=== PATIENT | male | born 1955 | race Caucasian/White ===

== ENCOUNTER 2021-05-04 13:28 | Inpatient (IN) | payer MEDICARE, BC ==
[2021-05-04 15:02] LABS: ALT (SGPT) 22 U/L (8-55); AST (SGOT) 19 U/L (5-34); Albumin 4.2 g/dL (3.4-4.8); Alkaline Phosphatase 55 U/L (40-110); Anion Gap 20 mmol/L (10-20); BUN (Urea Nitrogen) 40 mg/dL (8.4-25.7); Bilirubin, Total 0.4 mg/dL (0.2-1.2); CK (CPK) 54 U/L (30-200); Calc. Creatinine Clearance 0 mL/min (70-130); Calcium 9.3 mg/dL (7.8-10.44); Carbon Dioxide 21 mmol/L (23-31); Chloride 99 mmol/L (98-107); Globulin 2.3 g/dL (2.4-3.5); Glucose 262 mg/dL (80-115); Potassium 5.1 mmol/L (3.5-5.1); Protein, Total 6.5 g/dL (5.8-8.1); Sodium 135 mmol/L (136-145)
[2021-05-04] MEDS ORDERED: Cefepime 2 GM VIAL ONE (15:15)
[2021-05-04] MEDS ORDERED: Vancomycin 1.5 GRAM/300 ML BAG 1.5 GM in Premix Bag 1 BAG IVPB SCH (15:15)
[2021-05-04 15:19] LABS: #Eosinphils 0.1 10x3/uL (0.0-0.5); #Monocytes 0.6 10x3/uL (0.0-1.1); #Neutrophils 7.4 10x3/uL (1.5-8.4); %Basophils 0.4 % (0.0-2.0); %Eosinophils 0.9 % (0.0-6.0); %Monocytes 5.7 % (0.0-10.0); %Neutrophils 77.3 % (40.0-75.0); Hemoglobin 12.1 g/dL (13.5-17.5); Mean Corpuscular HGB CONC 33.2 g/dL (32.0-36.0); Mean Corpuscular Hemoglobin 31.8 pg (27.0-33.0); Mean Corpuscular Volume 95.8 fl (81.2-95.1); Mean Platelet Volume 9.8 fl (7.4-10.4); Platelet Count 179 10x3/uL (150-450); RBC Distribution Width 14.2 % (11.5-14.5); White Blood Cell (WBC) Count 9.6 10x3/uL (3.5-10.5)
[2021-05-04] MEDS ORDERED: Dextrose 50% Abboject 50 ML SYRINGE SLOW IVP PRN (17:16)
[2021-05-04] MEDS ORDERED: Dextrose 5% in Water 1,000 ML IV PRN (17:16)
[2021-05-04] MEDS ORDERED: Ondansetron ODT 4 MG TAB PO PRN (17:16)
[2021-05-04 17:29] LABS: Lactic Acid 3.4 mmol/L (0.5-2.2)
[2021-05-04] MEDS ORDERED: Sodium Chloride 0.9% 1,000 ML IV SCH (17:30)
[2021-05-04] MEDS ORDERED: Cyclobenzaprine 10 MG TAB PO SCH (19:15)
[2021-05-04 21:32] LABS: Lactic Acid 3.1 mmol/L (0.5-2.2)
[2021-05-04] MEDS: Acetaminophen 325 MG TAB PO PRN (21:42)
[2021-05-04] MEDS: Heparin 5,000 UNITS/ML VIAL SC SCH (21:44)
[2021-05-05 03:16] VITALS: BMI 24.3
[2021-05-05] MEDS ORDERED: FLU VACC QS2021-22(65YR UP)/PF 240 MCG/0.7 ML SYRINGE IM ONE (04:00)
[2021-05-05 05:31] LABS: #Basophils 0.1 10x3/uL (0.0-0.2); #Eosinphils 0.1 10x3/uL (0.0-0.5); #Monocytes 0.7 10x3/uL (0.0-1.1); #Neutrophils 5.3 10x3/uL (1.5-8.4); %Basophils 0.7 % (0.0-2.0); %Eosinophils 1.6 % (0.0-6.0); %Lymphocytes 28.7 % (18.0-47.0); %Monocytes 8.1 % (0.0-10.0); %Neutrophils 60.2 % (40.0-75.0); Hemoglobin 11.6 g/dL (13.5-17.5); Mean Corpuscular HGB CONC 33.5 g/dL (32.0-36.0); Mean Corpuscular Hemoglobin 32.1 pg (27.0-33.0); Mean Corpuscular Volume 95.8 fl (81.2-95.1); Mean Platelet Volume 10.2 fl (7.4-10.4); Platelet Count 198 10x3/uL (150-450); RBC Distribution Width 14.1 % (11.5-14.5); Red Blood Cell (RBC) Count 3.61 10x6/uL (4.32-5.72); White Blood Cell (WBC) Count 8.9 10x3/uL (3.5-10.5)
[2021-05-05] MEDS: Acetaminophen 325 MG TAB PO PRN ×3 (06:05→19:57)
[2021-05-05 06:06] LABS: Anion Gap 17 mmol/L (10-20); BUN (Urea Nitrogen) 39 mg/dL (8.4-25.7); Calc. Creatinine Clearance 37 mL/min (70-130); Calcium 9.1 mg/dL (7.8-10.44); Carbon Dioxide 18 mmol/L (23-31); Chloride 108 mmol/L (98-107); Glucose 143 mg/dL (80-115); Potassium 3.8 mmol/L (3.5-5.1); Sodium 139 mmol/L (136-145)
[2021-05-05] MEDS ORDERED: ASCORBIC ACID PO SCH (09:00)
[2021-05-05] MEDS: Icosapent Ethyl 1 GM CAPSULE PO SCH ×2 (09:00→22:06)
[2021-05-05] MEDS ORDERED: [UNRECOGNIZED DRUG - OTHER] PO SCH (09:00)
[2021-05-05] MEDS ORDERED: Aspirin 81 mg Enteric Coated Tablet PO SCH (09:00)
[2021-05-05] MEDS ORDERED: FERROUS FUMARATE PO SCH (09:00)
[2021-05-05] MEDS: Metoprolol Tartrate 50 MG TAB PO SCH ×2 (09:20→21:51)
[2021-05-05] MEDS: Furosemide 40 MG TAB PO SCH (09:21)
[2021-05-05] MEDS: LACTINEX 1 TAB PO SCH (09:22)
[2021-05-05] MEDS: Heparin 5,000 UNITS/ML VIAL SC SCH ×2 (09:22→21:50)
[2021-05-05] MEDS: Cyclobenzaprine 10 MG TAB PO SCH ×2 (12:49→20:00)
[2021-05-05] MEDS: Atorvastatin Calcium 20 MG TAB PO SCH (12:50)
[2021-05-05] MEDS: Allopurinol 300 MG TAB PO SCH (12:50)
[2021-05-05] MEDS: Cholecalciferol 1,000 UNITS (25 MCG) TAB PO SCH (12:50)
[2021-05-05] MEDS: hydrALAZINE 25 MG TAB PO SCH ×2 (14:32→21:51)
[2021-05-05] MEDS: HumaLOG 300 UNITS/3 ML VIAL SC PRN (14:45)
[2021-05-05] MEDS: Cefepime 1 GM in Sodium Chloride 0.9% 100 ML IVPB SCH (15:28)
[2021-05-05 15:31] LABS: Vancomycin, Random 8.4 ug/mL (See Comment)
[2021-05-05] MEDS ORDERED: Vancomycin 1 GM in Premix Bag 1 BAG IVPB SCH (16:00)
[2021-05-05 17:59] LABS: Lactic Acid 1.6 mmol/L (0.5-2.2)
[2021-05-05] MEDS: Vancomycin HCl 1 GM in Sodium Chloride 0.9% 250 ML 250 ML IVPB SCH (21:50)
[2021-05-06] MEDS: Acetaminophen 325 MG TAB PO PRN ×4 (01:45→18:45)
[2021-05-06] MEDS: Cyclobenzaprine 10 MG TAB PO SCH ×5 (01:45→23:26)
[2021-05-06] MEDS: Levothyroxine Sodium 25 MCG TAB PO SCH (06:11)
[2021-05-06 06:35] LABS: #Eosinphils 0.1 10x3/uL (0.0-0.5); #Monocytes 0.7 10x3/uL (0.0-1.1); #Neutrophils 4.9 10x3/uL (1.5-8.4); %Basophils 0.5 % (0.0-2.0); %Eosinophils 1.7 % (0.0-6.0); %Lymphocytes 27.7 % (18.0-47.0); %Monocytes 8.7 % (0.0-10.0); %Neutrophils 60.8 % (40.0-75.0); Hemoglobin 11.7 g/dL (13.5-17.5); Mean Corpuscular HGB CONC 33.6 g/dL (32.0-36.0); Mean Corpuscular Hemoglobin 32.2 pg (27.0-33.0); Mean Corpuscular Volume 95.9 fl (81.2-95.1); Platelet Count 173 10x3/uL (150-450); Red Blood Cell (RBC) Count 3.63 10x6/uL (4.32-5.72)
[2021-05-06 06:44] LABS: Anion Gap 16 mmol/L (10-20); BUN (Urea Nitrogen) 34 mg/dL (8.4-25.7); Calc. Creatinine Clearance 39 mL/min (70-130); Calcium 8.9 mg/dL (7.8-10.44); Carbon Dioxide 21 mmol/L (23-31); Chloride 105 mmol/L (98-107); Glucose 182 mg/dL (80-115); Sodium 138 mmol/L (136-145)
[2021-05-06 08:16] LABS: Anion Gap 16 mmol/L (10-20); BUN (Urea Nitrogen) 34 mg/dL (8.4-25.7); Calc. Creatinine Clearance 39 mL/min (70-130); Calcium 8.9 mg/dL (7.8-10.44); Carbon Dioxide 21 mmol/L (23-31); Chloride 105 mmol/L (98-107); Glucose 214 mg/dL (80-115); Potassium 3.7 mmol/L (3.5-5.1); Sodium 138 mmol/L (136-145)
[2021-05-06] MEDS: Metoprolol Tartrate 50 MG TAB PO SCH ×2 (08:56→21:09)
[2021-05-06] MEDS: Icosapent Ethyl 1 GM CAPSULE PO SCH ×2 (08:56→21:09)
[2021-05-06] MEDS: Furosemide 40 MG TAB PO SCH (08:57)
[2021-05-06] MEDS: hydrALAZINE 25 MG TAB PO SCH ×2 (08:57→21:09)
[2021-05-06] MEDS: LACTINEX 1 TAB PO SCH (08:57)
[2021-05-06] MEDS: Heparin 5,000 UNITS/ML VIAL SC SCH ×2 (08:58→21:18)
[2021-05-06] MEDS: Cholecalciferol 1,000 UNITS (25 MCG) TAB PO SCH (12:18)
[2021-05-06] MEDS: Allopurinol 300 MG TAB PO SCH (12:18)
[2021-05-06] MEDS: Atorvastatin Calcium 20 MG TAB PO SCH (12:19)
[2021-05-06] MEDS: HumaLOG 300 UNITS/3 ML VIAL SC PRN ×3 (13:17→21:31)
[2021-05-06 14:45] LABS: SARS-CoV-2 PCR by NAA Not Detected (NotDetected)
[2021-05-06] MEDS: Cefepime 1 GM in Sodium Chloride 0.9% 100 ML IVPB SCH (15:23)
[2021-05-06] MEDS: Vancomycin HCl 1 GM in Sodium Chloride 0.9% 250 ML 250 ML IVPB SCH (21:08)
[2021-05-06] MEDS: Docusate 100 MG CAP PO SCH (21:09)
[2021-05-07] MEDS: Metoprolol Tartrate 50 MG TAB PO SCH ×2 (05:40→20:15)
[2021-05-07] MEDS: Cyclobenzaprine 10 MG TAB PO SCH ×4 (05:41→22:05)
[2021-05-07] MEDS: LACTINEX 1 TAB PO SCH (06:39)
[2021-05-07] MEDS: Levothyroxine Sodium 25 MCG TAB PO SCH (06:39)
[2021-05-07] MEDS: Icosapent Ethyl 1 GM CAPSULE PO SCH ×2 (06:39→20:15)
[2021-05-07] MEDS: hydrALAZINE 25 MG TAB PO SCH ×2 (06:40→20:15)
[2021-05-07] MEDS: Docusate 100 MG CAP PO SCH ×2 (06:41→20:15)
[2021-05-07] MEDS: Acetaminophen 325 MG TAB PO PRN ×2 (06:54→20:23)
[2021-05-07] MEDS: Heparin 5,000 UNITS/ML VIAL SC SCH (06:57)
[2021-05-07 07:40] LABS: #Basophils 0.1 10x3/uL (0.0-0.2); #Eosinphils 0.2 10x3/uL (0.0-0.5); #Monocytes 0.8 10x3/uL (0.0-1.1); #Neutrophils 6.2 10x3/uL (1.5-8.4); %Basophils 0.8 % (0.0-2.0); %Eosinophils 1.9 % (0.0-6.0); %Lymphocytes 21.4 % (18.0-47.0); %Monocytes 8.8 % (0.0-10.0); %Neutrophils 66.3 % (40.0-75.0); Hemoglobin 12.3 g/dL (13.5-17.5); Mean Corpuscular HGB CONC 33.6 g/dL (32.0-36.0); Mean Corpuscular Hemoglobin 31.5 pg (27.0-33.0); Mean Corpuscular Volume 93.8 fl (81.2-95.1); Mean Platelet Volume 10.2 fl (7.4-10.4); Platelet Count 191 10x3/uL (150-450); RBC Distribution Width 13.9 % (11.5-14.5); White Blood Cell (WBC) Count 9.3 10x3/uL (3.5-10.5)
[2021-05-07 07:45] LABS: Anion Gap 17 mmol/L (10-20); BUN (Urea Nitrogen) 34 mg/dL (8.4-25.7); Calc. Creatinine Clearance 47 mL/min (70-130); Calcium 9.5 mg/dL (7.8-10.44); Carbon Dioxide 23 mmol/L (23-31); Chloride 103 mmol/L (98-107); Glucose 268 mg/dL (80-115); Potassium 3.9 mmol/L (3.5-5.1); Sodium 139 mmol/L (136-145)
[2021-05-07 07:47] LABS: Anion Gap 15 mmol/L (10-20); BUN (Urea Nitrogen) 34 mg/dL (8.4-25.7); Calc. Creatinine Clearance 48 mL/min (70-130); Calcium 9.3 mg/dL (7.8-10.44); Carbon Dioxide 23 mmol/L (23-31); Chloride 103 mmol/L (98-107); Glucose 268 mg/dL (80-115); Potassium 3.8 mmol/L (3.5-5.1); Sodium 137 mmol/L (136-145)
[2021-05-07] MEDS: Cholecalciferol 1,000 UNITS (25 MCG) TAB PO SCH (11:38)
[2021-05-07] MEDS: Atorvastatin Calcium 20 MG TAB PO SCH (11:38)
[2021-05-07] MEDS: Allopurinol 300 MG TAB PO SCH (11:38)
[2021-05-07] MEDS ORDERED: Nitroglycerin 50 MG/250 ML BOT 0 ML ONE (12:33)
[2021-05-07] MEDS ORDERED: Bivalirudin 250 MG VIAL ONE (12:34)
[2021-05-07] MEDS ORDERED: Verapamil 5 MG/2 ML VIAL ONE (12:34)
[2021-05-07] MEDS ORDERED: Adenosine 6 MG/2 ML VIAL ONE (12:34)
[2021-05-07] MEDS ORDERED: Lidocaine 1% PF 5 ML VIAL ONE (12:36)
[2021-05-07] MEDS ORDERED: Heparin 10,000 UNITS/ 10 ML VIAL ONE (12:36)
[2021-05-07] MEDS ORDERED: Fentanyl 100 MCG/2 ML VIAL ONE (12:37)
[2021-05-07] MEDS ORDERED: Sodium Chloride 0.9% 1,000 ML ONE (12:37)
[2021-05-07] MEDS ORDERED: Midazolam HCl 2 mg/2 ml Vial ONE ×2 (12:37→13:59)
[2021-05-07] MEDS ORDERED: TICAGRELOR 90 MG TABLET ONE (14:08)
[2021-05-07] MEDS ORDERED: Aspirin 325 MG TAB ONE (14:08)
[2021-05-07] MEDS: Cefepime 2 GM in Sodium Chloride 0.9% 100 ML IVPB SCH (15:49)
[2021-05-07] MEDS: Sodium Chloride 0.9% 1,000 ML IV SCH (15:50)
[2021-05-07] MEDS: Vancomycin HCl 1 GM in Sodium Chloride 0.9% 250 ML 250 ML IVPB SCH (19:41)
[2021-05-07 20:18] LABS: Vancomycin, Trough 13.8 ug/mL
[2021-05-07] MEDS: HumaLOG 300 UNITS/3 ML VIAL SC PRN (21:13)
[2021-05-08] MEDS: Sodium Chloride 0.9% 1,000 ML IV SCH ×3 (01:33→23:53)
[2021-05-08 03:47] LABS: #Basophils 0.1 10x3/uL (0.0-0.2); #Eosinphils 0.2 10x3/uL (0.0-0.5); #Monocytes 0.8 10x3/uL (0.0-1.1); #Neutrophils 5.6 10x3/uL (1.5-8.4); %Basophils 0.6 % (0.0-2.0); %Monocytes 9.2 % (0.0-10.0); %Neutrophils 68.8 % (40.0-75.0); Hemoglobin 11.1 g/dL (13.5-17.5); Mean Corpuscular HGB CONC 34.2 g/dL (32.0-36.0); Mean Corpuscular Hemoglobin 32.1 pg (27.0-33.0); Mean Corpuscular Volume 93.9 fl (81.2-95.1); Mean Platelet Volume 10.3 fl (7.4-10.4); Platelet Count 161 10x3/uL (150-450); RBC Distribution Width 14.1 % (11.5-14.5); Red Blood Cell (RBC) Count 3.46 10x6/uL (4.32-5.72); White Blood Cell (WBC) Count 8.2 10x3/uL (3.5-10.5)
[2021-05-08 04:16] LABS: ALT (SGPT) 18 U/L (8-55); AST (SGOT) 16 U/L (5-34); Albumin 3.8 g/dL (3.4-4.8); Alkaline Phosphatase 60 U/L (40-110); Anion Gap 13 mmol/L (10-20); BUN (Urea Nitrogen) 29 mg/dL (8.4-25.7); Bilirubin, Total 0.3 mg/dL (0.2-1.2); Calc. Creatinine Clearance 49 mL/min (70-130); Calcium 9.1 mg/dL (7.8-10.44); Carbon Dioxide 22 mmol/L (23-31); Chloride 106 mmol/L (98-107); Globulin 1.9 g/dL (2.4-3.5); Glucose 292 mg/dL (80-115); Magnesium 1.9 mg/dL (1.6-2.6); Potassium 4.2 mmol/L (3.5-5.1); Protein, Total 5.7 g/dL (5.8-8.1); Sodium 137 mmol/L (136-145)
[2021-05-08] MEDS: Cyclobenzaprine 10 MG TAB PO SCH ×4 (06:18→23:54)
[2021-05-08] MEDS: Acetaminophen 325 MG TAB PO PRN ×2 (06:18→21:20)
[2021-05-08] MEDS: HumaLOG 300 UNITS/3 ML VIAL SC PRN ×3 (06:23→21:22)
[2021-05-08] MEDS: LACTINEX 1 TAB PO SCH (08:31)
[2021-05-08] MEDS: Aspirin Chewable 81 MG TAB PO SCH (08:32)
[2021-05-08] MEDS: Icosapent Ethyl 1 GM CAPSULE PO SCH ×2 (08:32→21:21)
[2021-05-08] MEDS: Clopidogrel Bisulfate 75 MG TAB PO SCH (08:32)
[2021-05-08] MEDS: Levothyroxine Sodium 25 MCG TAB PO SCH (08:33)
[2021-05-08] MEDS: Docusate 100 MG CAP PO SCH ×2 (08:33→21:22)
[2021-05-08] MEDS: hydrALAZINE 25 MG TAB PO SCH ×2 (08:33→21:20)
[2021-05-08] MEDS: Metoprolol Tartrate 50 MG TAB PO SCH ×2 (08:34→21:21)
[2021-05-08] MEDS: Cholecalciferol 1,000 UNITS (25 MCG) TAB PO SCH (12:47)
[2021-05-08] MEDS: Atorvastatin Calcium 20 MG TAB PO SCH (12:47)
[2021-05-08] MEDS: Allopurinol 300 MG TAB PO SCH (12:47)
[2021-05-08] MEDS ORDERED: Lantus 1000 UNITS/10 ML VIAL SC SCH (15:00)
[2021-05-08] MEDS ORDERED: Sodium Chloride 0.9% 100 ML ONE (16:09)
[2021-05-08] MEDS: Cefepime 2 GM in Sodium Chloride 0.9% 100 ML IVPB SCH (16:23)
[2021-05-08] MEDS: Vancomycin HCl 1 GM in Sodium Chloride 0.9% 250 ML 250 ML IVPB SCH (21:20)
[2021-05-09 05:09] LABS: Anion Gap 14 mmol/L (10-20); BUN (Urea Nitrogen) 23 mg/dL (8.4-25.7); Calc. Creatinine Clearance 55 mL/min (70-130); Carbon Dioxide 20 mmol/L (23-31); Chloride 108 mmol/L (98-107); Glucose 254 mg/dL (80-115); Sodium 138 mmol/L (136-145)
[2021-05-09] MEDS: HumaLOG 300 UNITS/3 ML VIAL SC PRN ×4 (05:57→21:10)
[2021-05-09] MEDS: Cyclobenzaprine 10 MG TAB PO SCH ×4 (06:03→22:59)
[2021-05-09] MEDS: Lantus 1000 UNITS/10 ML VIAL SC SCH (08:40)
[2021-05-09] MEDS: Sodium Chloride 0.9% 1,000 ML IV SCH ×2 (08:40→20:56)
[2021-05-09] MEDS: Metoprolol Tartrate 50 MG TAB PO SCH ×2 (08:40→20:56)
[2021-05-09] MEDS: Aspirin Chewable 81 MG TAB PO SCH (08:40)
[2021-05-09] MEDS: LACTINEX 1 TAB PO SCH (08:40)
[2021-05-09] MEDS: Levothyroxine Sodium 25 MCG TAB PO SCH (08:41)
[2021-05-09] MEDS: hydrALAZINE 25 MG TAB PO SCH ×2 (08:41→20:59)
[2021-05-09] MEDS: Docusate 100 MG CAP PO SCH ×2 (08:41→21:59)
[2021-05-09] MEDS: Icosapent Ethyl 1 GM CAPSULE PO SCH ×2 (08:41→20:56)
[2021-05-09] MEDS: Clopidogrel Bisulfate 75 MG TAB PO SCH (08:41)
[2021-05-09] MEDS: Furosemide 40 MG TAB PO SCH (08:49)
[2021-05-09] MEDS: Cholecalciferol 1,000 UNITS (25 MCG) TAB PO SCH (14:28)
[2021-05-09] MEDS: Atorvastatin Calcium 20 MG TAB PO SCH (14:28)
[2021-05-09] MEDS: Allopurinol 300 MG TAB PO SCH (14:28)
[2021-05-09] MEDS ORDERED: Non-Formulary Medication 1 EACH (Semaglutide [Rybelsus] 14 MG Tablet) PO SCH (14:35)
[2021-05-09] MEDS: Cefepime 2 GM in Sodium Chloride 0.9% 100 ML IVPB SCH (14:42)
[2021-05-09] MEDS: Acetaminophen 325 MG TAB PO PRN (15:00)
[2021-05-09] MEDS ORDERED: Empagliflozin 25 MG TAB PO SCH (15:00)
[2021-05-09 19:20] LABS: Vancomycin, Trough 15.5 ug/mL
[2021-05-09] MEDS: Vancomycin HCl 1 GM in Sodium Chloride 0.9% 250 ML 250 ML IVPB SCH (20:55)
[2021-05-10] MEDS: Sodium Chloride 0.9% 1,000 ML IV SCH (05:05)
[2021-05-10] MEDS: Cyclobenzaprine 10 MG TAB PO SCH ×2 (05:24→12:31)
[2021-05-10] MEDS: HumaLOG 300 UNITS/3 ML VIAL SC PRN (06:06)
[2021-05-10] MEDS: Furosemide 40 MG TAB PO SCH (08:22)
[2021-05-10] MEDS: hydrALAZINE 25 MG TAB PO SCH (08:22)
[2021-05-10] MEDS: Aspirin Chewable 81 MG TAB PO SCH (08:22)
[2021-05-10] MEDS: Docusate 100 MG CAP PO SCH (08:23)
[2021-05-10] MEDS: Metoprolol Tartrate 50 MG TAB PO SCH (08:23)
[2021-05-10] MEDS: Icosapent Ethyl 1 GM CAPSULE PO SCH (08:23)
[2021-05-10] MEDS: Clopidogrel Bisulfate 75 MG TAB PO SCH (08:23)
[2021-05-10] MEDS: LACTINEX 1 TAB PO SCH (08:23)
[2021-05-10] MEDS: Lantus 1000 UNITS/10 ML VIAL SC SCH (08:24)
[2021-05-10] MEDS: Levothyroxine Sodium 25 MCG TAB PO SCH (08:24)
[2021-05-10] MEDS ORDERED: Doxycycline 100 MG CAP PO SCH (09:00)
[2021-05-10] MEDS ORDERED: metFORMIN 500 MG TAB PO SCH (10:00)
[2021-05-10] MEDS ORDERED: Empagliflozin 25 MG TAB PO SCH (12:00)
[2021-05-10] MEDS: Atorvastatin Calcium 20 MG TAB PO SCH (12:31)
[2021-05-10] MEDS: Cholecalciferol 1,000 UNITS (25 MCG) TAB PO SCH (12:31)
[2021-05-10] MEDS: Allopurinol 300 MG TAB PO SCH (12:31)
[2021-05-10] MEDS: Acetaminophen 325 MG TAB PO PRN (12:32)
[2021-05-10 12:56] VITALS: BP 137/69; TEMP 97.8
[2021-05-10] MEDS ORDERED: Cipro 250 MG TAB PO SCH (20:00)
[2021-05-11] MEDS ORDERED: metFORMIN 500 MG TAB PO SCH (17:00)
== END 2021-05-10 15:00 | disposition home health service (06) | DRG 854 ==
LOC: CSHERS 13:28 → CSHTELE 19:17
PROVIDERS: ADMIT Internal Medicine; ATTEND Internal Medicine
PROC: 047L34Z Dilation of Left Femoral Artery with Drug-eluting Intraluminal Device, Percutaneous Approach (ICD-10-PCS; principal; 2021-05-07)
PROC: 047Q3ZZ Dilation of Left Anterior Tibial Artery, Percutaneous Approach (ICD-10-PCS; 2021-05-07)
PROC: B4101ZZ Fluoroscopy of Abdominal Aorta using Low Osmolar Contrast (ICD-10-PCS; 2021-05-07)
PROC: B41G1ZZ Fluoroscopy of Left Lower Extremity Arteries using Low Osmolar Contrast (ICD-10-PCS; 2021-05-07)
DX: A41.9 Sepsis, unspecified organism (principal); N17.9 Acute kidney failure, unspecified; E11.51 Type 2 diabetes mellitus with diabetic peripheral angiopathy without gangrene; E11.628 Type 2 diabetes mellitus with other skin complications; E11.22 Type 2 diabetes mellitus with diabetic chronic kidney disease; I12.9 Hypertensive chronic kidney disease with stage 1 through stage 4 chronic kidney disease, or unspecified chronic kidney disease; E78.5 Hyperlipidemia, unspecified; E03.9 Hypothyroidism, unspecified; D63.1 Anemia in chronic kidney disease; M10.9 Gout, unspecified; G89.29 Other chronic pain; N18.30 Chronic kidney disease, stage 3 unspecified; Z20.822 Contact with and (suspected) exposure to COVID-19; L08.9 Local infection of the skin and subcutaneous tissue, unspecified; M54.9 Dorsalgia, unspecified; K21.9 Gastro-esophageal reflux disease without esophagitis; Z88.8 Allergy status to other drugs, medicaments and biological substances; Z79.82 Long term (current) use of aspirin; Z79.899 Other long term (current) drug therapy; Z98.890 Other specified postprocedural states; Z89.422 Acquired absence of other left toe(s)
CPT/HCPCS: 36415; 36416; 37226; 37228; 75710; 75736; 80048; 80053; 80202; 82550; 83605; 83735; 85025; 85347; 85652; 86140; 87040; 93923; 96365; 96366; 96368; 99152; 99153; C1725; C1876; J0153; J0583; J0692; J1644; J1815; J2250; J3010; J3370; J3490; J7050; U0003; U0005

== ENCOUNTER 2023-02-03 00:44 | Emergency (ER) | payer MEDICARE, BC ==
[2023-02-03] MEDS ORDERED: Insulin Regular 300 UNITS/3 ML VIAL ONE (01:55)
[2023-02-03 06:09] LABS: #Basophils 0.1 10x3/uL (0.0-0.2); #Eosinphils 0.4 10x3/uL (0.0-0.5); #Monocytes 0.8 10x3/uL (0.0-1.1); #Neutrophils 6.7 10x3/uL (1.5-8.4); %Basophils 0.7 % (0.0-2.0); %Eosinophils 3.7 % (0.0-6.0); %Lymphocytes 18.5 % (18.0-47.0); %Neutrophils 68.7 % (40.0-75.0); Hemoglobin 11.9 g/dL (13.5-17.5); Mean Corpuscular HGB CONC 34.2 g/dL (32.0-36.0); Mean Corpuscular Volume 87.7 fl (81.2-95.1); Platelet Count 233 10x3/uL (150-450); Red Blood Cell (RBC) Count 3.97 10x6/uL (4.32-5.72); White Blood Cell (WBC) Count 9.8 10x3/uL (3.5-10.5)
[2023-02-03 06:54] LABS: Actual Bicarbonate (HCO3v) 19.6 mEq/L (22-28); Base Excess -5.2 mEq/L (-2 - +2); Calcium, Ionized (venous) 1.13 mmol/L (1.16-1.32); Chloride (VBG) 99 mmol/L (98-106); Hematocrit-VBG 31 % (42.0-52.0); Hemoglobin (Hb) 10.7 g/dL (12.6-17.4); Potassium (VBG) 4.21 mmol/L (3.70-5.30); Puncture Site Other Site; RapidComm Collect By CBN; Sodium 134.1 mmol/L (133-146); pH (venous) 7.363 (7.32-7.43)
== END 2023-02-03 02:45 | disposition home or self-care (01) ==
LOC: CSHERS 00:44
DX: E11.65 Type 2 diabetes mellitus with hyperglycemia (principal); I10 Essential (primary) hypertension; E03.9 Hypothyroidism, unspecified; E78.5 Hyperlipidemia, unspecified; K21.9 Gastro-esophageal reflux disease without esophagitis; Z79.82 Long term (current) use of aspirin; Z79.84 Long term (current) use of oral hypoglycemic drugs; Z79.899 Other long term (current) drug therapy
CPT/HCPCS: 36416; 82805; 96374; J1815